=== PATIENT | female | born 1985 | race Caucasian/White ===

== ENCOUNTER → 2023-05-08 | Outpatient (CLI) | payer OTHER ==
[~2023-05-08] VITALS: Ht 167.6 cm; Wt 74.0 kg
[~2023-05-08] MED LIST: NATURAL IRON65 MG PO
[2023-05-08 10:08] VITALS: BP 121/84; PULSE 85; TEMP 97.9
[2023-05-08 10:45] VITALS: BP 123/83; PULSE 77
== END ==
LOC: COL.RAD 09:30
DX: E04.1 Nontoxic single thyroid nodule (principal)